=== PATIENT | female | born 1970 | race Caucasian/White ===

== ENCOUNTER → 2016-11-20 | Outpatient (CLI) | payer BC ==
[~2016-11-20] MED LIST: CARAFATE PO; FLEXERIL PO; IBUPROFEN PO; ONGLYZA2.5 MG PO; PROVERA PO; TESSALON200 MG PO; VICODIN PO
--- NOTE | ~2016-11-20 | ST ---
Unit #: [id number]: [id number] Patient: BIRGIT MACDONALD [id number] [address] [id number] O MR#: [id number] NAME: BIRGIT MACDONALD : 1970 SEX: F STUDY DATE/TIME: 11/21/2016 UNIT: [facility] ROOM: STUDY DESCRIPTION: Attending Physician: Teresa Caceres M.D. Referring Physician: Teresa Caceres M.D. Primary Care Physician: Shari Askew M.D. CARDIOLOGY REPORT EXAM Stress ECG. INDICATIONS Chest pain, left arm pain. SUMMARY The patient exercised on a Gil protocol to maximal effort. The patient's heart rate increased from 81 to 156 (91%) and blood pressure increased to 139/77 to 176/90. There was no chest pain noted. The rest and stress ECG showed no diagnostic ST shifts, no significant dysrhythmias, although PVCs were noted at peak stress. There was typical shortness of breath and mild chest pain and left arm pain. There were no ECG changes as noted. IMPRESSION 1. Fair exercise capacity with patient completing 7 minutes 1 second of exercise. 2. Normal heart rate and blood pressure responses. 3. Normal stress ECG despite chest pain. Dictated by... Jaciel Dejesus/tashi TD: 11/22/2016 08:21 JOB #: [id number] CARDIOLOGY REPORT X Robi Boucher MD CARDIOLOGY REPORT
== END | disposition home or self-care (01) ==
LOC: CEKG 07:33
DX: R07.9 Chest pain, unspecified (principal); M79.602 Pain in left arm; E11.9 Type 2 diabetes mellitus without complications
CPT/HCPCS: 93017